=== PATIENT | female | born 1955 | race Hispanic/Latino ===

== ENCOUNTER → 2019-10-27 | Outpatient (CLI) | payer BC ==
[~2019-10-27] MED LIST: ASPI-1005 PO; ATOR20TA65 PO; CETI10TA86 PO; FISH1CAP20 PO; FLUT16H NASAL; HYDR-4457 PO; IBUP-2070 PO; LORA-997 PO; LOSA50TA64 PO; METF-444 PO; MVIT PO; NAPR500T6 PO; OXYB-66 PO; PRAV40TA3 PO; PREMC VG; SERT50TA12 PO; SOLI10TA7 PO; TRAM50TA2 PO; VIT1TABL95 PO; VITA1TAB39 PO; VITAD50000 PO
== END | disposition home or self-care (01) ==
LOC: SHCH 14:58
PROVIDERS: ATTEND Internal Medicine Cardiovascular Disease
DX: R94.31 Abnormal electrocardiogram [ECG] [EKG] (principal)
CPT/HCPCS: 93306

== ENCOUNTER → 2021-12-09 | Outpatient (CLI) | payer OTHER ==
[~2021-12-09] MED LIST changes: +BOTULINUM TOXIN TYPE A 100 UNITS/VIAL INJ PRN; +CEFTRIAXONE 1G VIAL IVP ONE; -CETI10TA86 PO; -METF-444 PO; -NAPR500T6 PO; -OXYB-66 PO; -PRAV40TA3 PO; +SERT-439 PO; -SERT50TA12 PO; -TRAM50TA2 PO; -VIT1TABL95 PO
[2021-12-09 12:53] LABS: APPEARANCE,URINE CLEAR (CLEAR); BILIRUBIN,URINE NEGATIVE (NEGATIVE); COLOR,URINE YELLOW (YELLOW); GLUCOSE, URINE (UA) NEGATIVE (NEGATIVE); KETONES,URINE NEGATIVE (NEGATIVE); LEUKOCYTE ESTERASE ,URINE NEGATIVE (NEGATIVE); NITRATE,URINE NEGATIVE (NEGATIVE); OCCULT BLOOD,URINE TRACE-INTACT (NEGATIVE); PROTEIN,URINE NEGATIVE (NEGATIVE); UROBILINOGEN,URINE 0.2 mg/dL (0.2-1.0)
[2021-12-09 13:04] LABS: BACTERIA,URINE Few /HPF (None Seen); MUCUS,URINE Moderate LPF (None Seen); RBC,URINE 0-1 /HPF (0-1); WBC,URINE 0-1 /HPF (0-1)
[2021-12-09 13:06] LABS: BASOPHILS % (AUTO) 0.5 % (0.0-5.0); HEMATOCRIT 40.9 % (36-48); MEAN CORPUSCULAR HEMOGLOBIN 29.2 pg (27.0-33.0); MEAN CORPUSCULAR HGB CONC 32.5 g/dL (32.0-36.0); MEAN CORPUSCULAR VOLUME 89.9 fL (79-99); MONOCYTES % (AUTO) 8.1 % (3.0-13.0); NEUTROPHILS % (AUTO) 83.6 % (40.0-77.0); PLATELET COUNT (AUTO) 212 K/uL (130-400); RED BLOOD CELL COUNT(AUTO) 4.55 MIL/uL (4.00-5.50); RED CELL DISTRIBUTION WIDTH 13.4 % (11.0-15.5); WHITE BLOOD COUNT (AUTO) 9.3 K/uL (4.8-10.8)
[2021-12-09 13:28] LABS: INR 0.96 (0.85-1.15); PROTHROMBIN TIME 10.5 SEC (9.6-11.6)
[2021-12-09 13:29] LABS: PARTIAL THROMBOPLASTIN TIME 29.2 SEC (26.3-35.5)
[2021-12-09 13:39] LABS: CREATININE 0.6 mg/dL (0.5-1.5); POTASSIUM 3.6 mmol/L (3.5-5.1)
== END | disposition home or self-care (01) ==
LOC: DAH 10:00 → EDSTATUS 11:00
PROVIDERS: ATTEND Urology
DX: Z01.818 Encounter for other preprocedural examination (principal); N39.46 Mixed incontinence; Z79.01 Long term (current) use of anticoagulants
CPT/HCPCS: 71045; 87426; 80048; 85025; 85610; 85730; 87088; 81001; 36415; 93005; A6260

== ENCOUNTER 2022-01-12 06:34 | Day surgery (SDC) | payer OTHER ==
[2022-01-09 16:35] VITALS: BP 162/61
[2022-01-09 16:58] LABS: BASOPHILS % (AUTO) 0.6 % (0.0-5.0); HEMATOCRIT 39.5 % (36-48); LYMPHOCYTES % (AUTO) 13.1 % (21.0-51.0); MEAN CORPUSCULAR HEMOGLOBIN 29.2 pg (27.0-33.0); MEAN CORPUSCULAR HGB CONC 31.6 g/dL (32.0-36.0); MEAN CORPUSCULAR VOLUME 92.3 fL (79-99); MONOCYTES % (AUTO) 7.4 % (3.0-13.0); NEUTROPHILS % (AUTO) 76.5 % (40.0-77.0); PLATELET COUNT (AUTO) 218 K/uL (130-400); RED BLOOD CELL COUNT(AUTO) 4.28 MIL/uL (4.00-5.50); WHITE BLOOD COUNT (AUTO) 9.6 K/uL (4.8-10.8)
[2022-01-09 17:00] LABS: APPEARANCE,URINE SL CLOUDY (CLEAR); BILIRUBIN,URINE NEGATIVE (NEGATIVE); COLOR,URINE YELLOW (YELLOW); GLUCOSE, URINE (UA) NEGATIVE (NEGATIVE); KETONES,URINE 5 mg/dL (NEGATIVE); LEUKOCYTE ESTERASE ,URINE NEGATIVE Leu/uL (NEGATIVE); NITRATE,URINE NEGATIVE (NEGATIVE); OCCULT BLOOD,URINE NEGATIVE (NEGATIVE); PROTEIN,URINE NEGATIVE (NEGATIVE); UROBILINOGEN,URINE 0.2 mg/dL (0.2-1.0)
[2022-01-09 17:06] LABS: BACTERIA,URINE Rare /HPF (None Seen); RBC,URINE 0-1 /HPF (0-1); SQUAMOUS EPITHELIAL CELL,UR Rare /HPF (0-2); WBC,URINE 0-1 /HPF (0-1)
[2022-01-09 17:07] LABS: CREATININE 0.8 mg/dL (0.5-1.5); POTASSIUM 3.9 mmol/L (3.5-5.1)
[2022-01-09 17:10] LABS: INR 0.93 (0.85-1.15); PROTHROMBIN TIME 10.1 SEC (9.6-11.6)
[2022-01-09 17:11] LABS: PARTIAL THROMBOPLASTIN TIME 28.3 SEC (26.3-35.5)
[2022-01-12] VITALS (16 sets, daily range): BP systolic 106–136; BP diastolic 51–72
[~2022-01-12] VITALS: Ht 144.8 cm; Wt 81.8 kg
[~2022-01-12 06:34] MED LIST changes: -ASPI-1005 PO; -BOTULINUM TOXIN TYPE A 100 UNITS/VIAL INJ PRN; -CEFTRIAXONE 1G VIAL IVP ONE; +CEFTRIAXONE 1G VIAL IVP SCH; -FISH1CAP20 PO; -FLUT16H NASAL; -HYDR-4457 PO; -IBUP-2070 PO; +NITR100C4 PO; -PREMC VG; -SOLI10TA7 PO
[2022-01-12] MEDS ORDERED: LACTATED RINGERS 1000ML 1,000 ML IV ONE (07:28)
[2022-01-12] MEDS ORDERED: OMEG-148 PO (07:53)
[2022-01-12] MEDS ORDERED: AEC81 PO (07:53)
[2022-01-12] MEDS ORDERED: BOTULINUM TOXIN TYPE A 100 UNITS/VIAL INJ SCH (08:00)
[2022-01-12] MEDS ORDERED: MIDAZOLAM HCL 1 MG/ML 2ML VIAL ONE (10:18)
[2022-01-12] MEDS ORDERED: PROPOFOL 10 MG/ML 20ML VIAL IV ONE (10:18)
[2022-01-12] MEDS ORDERED: FENTANYL CITRATE PF 50 MCG/1 ML 2ML VIAL ONE (10:18)
[2022-01-12] MEDS ORDERED: CEFTRIAXONE 1G VIAL IVP ONE (10:29)
[2022-01-12] MEDS ORDERED: LIDOCAINE HCL 2% PF 20 ML JEL DISP.SYRIN MM ONE (10:54)
== END 2022-01-12 13:35 | disposition home or self-care (01) ==
LOC: DAH 06:34
PROVIDERS: ATTEND Urology
DX: N39.46 Mixed incontinence (principal); N32.81 Overactive bladder; I10 Essential (primary) hypertension; E66.01 Morbid (severe) obesity due to excess calories; Z79.01 Long term (current) use of anticoagulants; Z79.899 Other long term (current) drug therapy; Z79.82 Long term (current) use of aspirin; Z98.890 Other specified postprocedural states
CPT/HCPCS: 80048; 85025; 85610; 85730; 87088; 87426; 81001; 36415; 71045; 93005; 52287; C1758; J7120; J3010; J0696 ×2; J2250; J2704; J0585; A4358; A4215 ×2; A4930; A4223; A4222; A4221; A4663; A4600

== ENCOUNTER 2022-08-03 06:51 | Day surgery (SDC) | payer OTHER ==
[2022-07-28 15:27] VITALS: BP 152/73
[2022-07-28 15:35] LABS: BASOPHILS % (AUTO) 0.7 % (0.0-5.0); EOSINOPHILS % (AUTO) 2.1 % (0.0-8.0); HEMATOCRIT 39.6 % (36-48); MEAN CORPUSCULAR HGB CONC 31.6 g/dL (32.0-36.0); MEAN CORPUSCULAR VOLUME 91.9 fL (79-99); MONOCYTES % (AUTO) 8.1 % (3.0-13.0); NEUTROPHILS % (AUTO) 76.6 % (40.0-77.0); PLATELET COUNT (AUTO) 237 K/uL (130-400); RED BLOOD CELL COUNT(AUTO) 4.31 MIL/uL (4.00-5.50); RED CELL DISTRIBUTION WIDTH 13.6 % (11.0-15.5); WHITE BLOOD COUNT (AUTO) 8.7 K/uL (4.8-10.8)
[2022-07-28 15:38] LABS: APPEARANCE,URINE CLEAR (CLEAR); BILIRUBIN,URINE NEGATIVE (NEGATIVE); COLOR,URINE YELLOW (YELLOW); GLUCOSE, URINE (UA) NEGATIVE (NEGATIVE); KETONES,URINE 5 mg/dL (NEGATIVE); LEUKOCYTE ESTERASE ,URINE NEGATIVE Leu/uL (NEGATIVE); NITRATE,URINE NEGATIVE (NEGATIVE); OCCULT BLOOD,URINE NEGATIVE (NEGATIVE); PROTEIN,URINE NEGATIVE (NEGATIVE); UROBILINOGEN,URINE 0.2 mg/dL (0.2-1.0)
[2022-07-28 15:42] LABS: BACTERIA,URINE RARE /HPF (None Seen); MUCUS,URINE RARE LPF (None Seen); SQUAMOUS EPITHELIAL CELL,UR MOD /HPF (0-2)
[2022-07-28 16:08] LABS: CREATININE 0.6 mg/dL (0.5-1.5); POTASSIUM 3.4 mmol/L (3.5-5.1)
[~2022-08-03] VITALS: Ht 144.8 cm; Wt 83.4 kg
[2022-08-03] VITALS (17 sets, daily range): BP systolic 95–129; BP diastolic 6–64
[2022-08-03] MEDS: CEFTRIAXONE 1G VIAL IVPB SCH ×2 (06:00→08:45)
[~2022-08-03 06:51] MED LIST changes: +ACET325T51 PO; +AEC81 PO; +ALEN70TA80 PO; +BOTULINUM TOXIN TYPE A 100 UNITS/VIAL INJ SCH; -CEFTRIAXONE 1G VIAL IVP SCH; -LORA-997 PO; -MVIT PO; -NITR100C4 PO; +OMEG-148 PO; -VITA1TAB39 PO; -VITAD50000 PO
[2022-08-03] MEDS ORDERED: LACTATED RINGERS 1000ML 1,000 ML IV ONE (06:55)
[2022-08-03] MEDS ORDERED: CEFTRIAXONE 1G VIAL ONE (06:55)
[2022-08-03] MEDS ORDERED: MACR100 PO (07:45)
[2022-08-03] MEDS ORDERED: DEXAMETHASONE SOD PHOSPHATE 10MG/ML 1ML VIAL ONE (08:37)
[2022-08-03] MEDS ORDERED: LIDOCAINE PF 100MG/5ML (2%) SYRINGE 5ML ONE (08:37)
[2022-08-03] MEDS ORDERED: MIDAZOLAM HCL 1 MG/ML 2ML VIAL ONE (08:38)
[2022-08-03] MEDS ORDERED: ONDANSETRON 4MG INJ ONE (08:38)
[2022-08-03] MEDS ORDERED: FENTANYL CITRATE PF 50 MCG/1 ML 2ML VIAL ONE (08:39)
[2022-08-03] MEDS ORDERED: PROPOFOL 10 MG/ML 20ML VIAL IV ONE (08:39)
[2022-08-03] MEDS ORDERED: KETOROLAC 30MG VIAL (30MG/ML) ONE (09:00)
[2022-08-03] MEDS ORDERED: PHENYLEPHRINE HCL 10 MG/ML 1ML VIAL IV ONE (09:00)
== END 2022-08-03 11:04 | disposition home or self-care (01) ==
LOC: DAH 06:51
PROVIDERS: ATTEND Urology
DX: N39.46 Mixed incontinence (principal); Z20.822 Contact with and (suspected) exposure to COVID-19; I10 Essential (primary) hypertension; Z90.710 Acquired absence of both cervix and uterus; Z98.890 Other specified postprocedural states
CPT/HCPCS: 80048; 85025; 87077; 87088; 87186; 87426; 81001; 36415; 71045; 93005; 52287; A4663; J7120 ×2; J3010; J1100; J2001; J0696; J2250; J2704; J2405; J1885; J2370; J0585; A4358; A4215 ×2; A4223; A4222; A4221; A4600

== ENCOUNTER 2023-02-22 08:36 | Day surgery (SDC) | payer BC, OTHER ==
[2023-02-16 14:17] VITALS: BP 137/64; PULSE 75; RESP 20
[2023-02-16 14:23] LABS: APPEARANCE,URINE CLEAR (CLEAR); BILIRUBIN,URINE NEGATIVE (NEGATIVE); COLOR,URINE YELLOW (YELLOW); GLUCOSE, URINE (UA) NEGATIVE (NEGATIVE); KETONES,URINE NEGATIVE (NEGATIVE); LEUKOCYTE ESTERASE ,URINE 75 Leu/uL (NEGATIVE); NITRATE,URINE NEGATIVE (NEGATIVE); OCCULT BLOOD,URINE SMALL (NEGATIVE); PH,URINE 5.5 (5.0-8.0); PROTEIN,URINE NEGATIVE (NEGATIVE); UROBILINOGEN,URINE 0.2 mg/dL (0.2-1.0)
[2023-02-16 14:31] LABS: ADD UA MICROSCOPIC YES
[2023-02-16 14:33] LABS: MUCUS,URINE RARE LPF (None Seen); SQUAMOUS EPITHELIAL CELL,UR RARE /HPF (0-2)
[~2023-02-22] VITALS: Ht 144.8 cm; Wt 81.3 kg
[2023-02-22] VITALS (14 sets, daily range): BP systolic 114–142; BP diastolic 51–73; PULSE 68–81; RESP 10–17
[~2023-02-22 08:36] MED LIST changes: -ACET325T51 PO; -ALEN70TA80 PO; +BOTULINUM TOXIN TYPE A 100 UNITS/VIAL INJ ONE; -BOTULINUM TOXIN TYPE A 100 UNITS/VIAL INJ SCH; +CEFAZOLIN SODIUM 1 GM VIAL IVPB ONE; +ONDA4TAB10 PO
[2023-02-22] MEDS ORDERED: SUCCINYLCHOLINE 200MG/10ML SYR ONE (08:57)
[2023-02-22] MEDS ORDERED: DEXAMETHASONE SOD PHOSPHATE 10MG/ML 1ML VIAL ONE (08:57)
[2023-02-22] MEDS ORDERED: MIDAZOLAM HCL 1 MG/ML 2ML VIAL ONE (08:57)
[2023-02-22] MEDS ORDERED: LIDOCAINE PF 100MG/5ML (2%) SYRINGE 5ML ONE (08:57)
[2023-02-22] MEDS ORDERED: ONDANSETRON 4MG INJ ONE (08:58)
[2023-02-22] MEDS ORDERED: ROCURONIUM 10MG/1ML SYR 10 MG/ML ML ONE (08:58)
[2023-02-22] MEDS ORDERED: NEOSTIGMINE 5MG/5ML SYR IV ONE (08:58)
[2023-02-22] MEDS ORDERED: PROPOFOL 10 MG/ML 20ML VIAL IV ONE (08:58)
[2023-02-22] MEDS ORDERED: FENTANYL CITRATE PF 50 MCG/1 ML 2ML VIAL ONE (08:58)
[2023-02-22] MEDS ORDERED: GLYCOPYRROLATE 1 MG/5 ML SYRINGE ONE (08:58)
[2023-02-22] MEDS ORDERED: BOTULINUM TOXIN TYPE A 100 UNITS/VIAL INJ SCH (09:00)
[2023-02-22] MEDS ORDERED: LACTATED RINGERS 1000ML 1,000 ML IV ONE (09:05)
[2023-02-22] MEDS ORDERED: CEFTRIAXONE 1G VIAL ONE (09:06)
[2023-02-22 09:28] LABS: CREATININE 0.5 mg/dL (0.5-1.5); POTASSIUM 4.1 mmol/L (3.5-5.1)
[2023-02-22] MEDS ORDERED: CEFAZOLIN SODIUM 1 GM VIAL IVPB ONE (10:15)
[2023-02-22] MEDS ORDERED: BOTULINUM TOXIN TYPE A 100 UNITS/VIAL INJ ONE (10:32)
== END 2023-02-22 12:25 | disposition home or self-care (01) ==
LOC: DAH 08:36
PROVIDERS: ATTEND Urology
DX: N39.46 Mixed incontinence (principal); N32.89 Other specified disorders of bladder; I10 Essential (primary) hypertension; E66.9 Obesity, unspecified; Z79.01 Long term (current) use of anticoagulants; Z79.899 Other long term (current) drug therapy; Z79.82 Long term (current) use of aspirin
CPT/HCPCS: 87088; 81001; 93005; 52287; 80048; 36415; A6260; A4663; J7120 ×2; J3010; J0690; J0330; J3490; J1100; J2710; J2001; J0696; J2250; J2704; J2405; J0585; A4358; A4215 ×2; A4223; A4222; A4221; A4600

== ENCOUNTER 2023-08-30 06:57 | Day surgery (SDC) | payer BC, OTHER ==
[2023-08-24 13:16] LABS: BASOPHILS # (AUTO) 0.06 K/uL (0.00-0.20); BASOPHILS % (AUTO) 0.7 % (0.0-5.0); EOSINOPHILS # (AUTO) 0.19 K/uL (0.00-0.70); EOSINOPHILS % (AUTO) 2.2 % (0.0-8.0); HEMATOCRIT 40.5 % (36-48); IMMATURE GRANULOCYTE ABSOLUTE 0.07 K/uL (0-1); LYMPHOCYTES # (AUTO) 1.2 K/uL (1.0-4.8); LYMPHOCYTES % (AUTO) 13.6 % (21.0-51.0); MEAN CORPUSCULAR HEMOGLOBIN 29.1 pg (27.0-33.0); MEAN CORPUSCULAR HGB CONC 31.9 g/dL (32.0-36.0); MEAN CORPUSCULAR VOLUME 91.4 fL (79-99); MONOCYTES # (AUTO) 0.9 K/uL (0.1-1.0); NEUTROPHILS # (AUTO) 6.3 K/uL (1.8-7.7); NEUTROPHILS % (AUTO) 72.7 % (40.0-77.0); PLATELET COUNT (AUTO) 244 K/uL (130-400); RED BLOOD CELL COUNT(AUTO) 4.43 MIL/uL (4.00-5.50); RED CELL DISTRIBUTION WIDTH 13.9 % (11.0-15.5); WHITE BLOOD COUNT (AUTO) 8.6 K/uL (4.8-10.8)
[2023-08-24 13:18] VITALS: BP 168/74; PULSE 81; RESP 18
[2023-08-24 13:27] LABS: CREATININE 0.6 mg/dL (0.5-1.0); POTASSIUM 4.4 mmol/L (3.5-5.1)
[2023-08-24 14:02] LABS: APPEARANCE,URINE CLOUDY (CLEAR); BILIRUBIN,URINE NEGATIVE (NEGATIVE); COLOR,URINE YELLOW (YELLOW); GLUCOSE, URINE (UA) NEGATIVE (NEGATIVE); KETONES,URINE NEGATIVE (NEGATIVE); LEUKOCYTE ESTERASE ,URINE 25 Leu/uL (NEGATIVE); NITRATE,URINE NEGATIVE (NEGATIVE); OCCULT BLOOD,URINE NEGATIVE (NEGATIVE); PH,URINE 6.5 (5.0-8.0); PROTEIN,URINE NEGATIVE (NEGATIVE); UROBILINOGEN,URINE 0.2 mg/dL (0.2-1.0)
[2023-08-24 14:04] LABS: ADD UA MICROSCOPIC YES
[2023-08-24 14:09] LABS: BACTERIA,URINE RARE /HPF (None Seen); CALCIUM OXALATE CRYSTALS,UR RARE /LPF (None Seen); MUCUS,URINE RARE LPF (None Seen); SQUAMOUS EPITHELIAL CELL,UR FEW /HPF (0-2)
[2023-08-30] VITALS (17 sets, daily range): BP systolic 114–151; BP diastolic 55–74; PULSE 61–72; RESP 12–19
[~2023-08-30] VITALS: Ht 146.1 cm; Wt 85.5 kg
[~2023-08-30 06:57] MED LIST changes: +ACET325T51 PO; -AEC81 PO; -BOTULINUM TOXIN TYPE A 100 UNITS/VIAL INJ ONE; -CEFAZOLIN SODIUM 1 GM VIAL IVPB ONE; +CETI10TA57 PO; +CHOL200074 PO; +IBUP-2784 PO; +NAPR-1141 PO; -OMEG-148 PO; -ONDA4TAB10 PO; -SERT-439 PO; +SERT-440 PO; +VITA0.4T20 PO; +[UNRECOGNIZED DRUG - CODE] PO
[2023-08-30] MEDS ORDERED: MIDAZOLAM HCL 1 MG/ML 2ML VIAL ONE (07:25)
[2023-08-30] MEDS ORDERED: PROPOFOL 10 MG/ML 20ML VIAL IV ONE (07:25)
[2023-08-30] MEDS ORDERED: LIDOCAINE PF 100MG/5ML (2%) SYRINGE 5ML ONE (07:25)
[2023-08-30] MEDS ORDERED: ONDANSETRON 4MG INJ ONE (07:26)
[2023-08-30] MEDS ORDERED: FENTANYL CITRATE PF 50 MCG/1 ML 2ML VIAL ONE (07:26)
[2023-08-30] MEDS: LACTATED RINGERS 1000ML 1,000 ML IV ONE (07:56)
[2023-08-30] MEDS ORDERED: MACR100 PO (08:23)
[2023-08-30] MEDS ORDERED: PHENYLEPHRINE HCL 10 MG/ML 1ML VIAL IV ONE (08:53)
[2023-08-30] MEDS: CEFTRIAXONE 1G VIAL ONE (08:55)
[2023-08-30] MEDS: BOTULINUM TOXIN TYPE A 100 UNITS/VIAL INJ SCH (09:00)
== END 2023-08-30 11:05 | disposition home or self-care (01) ==
LOC: DAH 06:57
PROVIDERS: ATTEND Urology
DX: N39.46 Mixed incontinence (principal); I10 Essential (primary) hypertension; Z79.899 Other long term (current) drug therapy; Z98.890 Other specified postprocedural states; Z90.710 Acquired absence of both cervix and uterus
CPT/HCPCS: 80048; 85025; 87088; 81001; 36415; 93005; 52287; A6260; A4663; J7120 ×2; C2617; J3010; J2001; J0696; J2250; J2704; J2405; J2371; J0585; A4358; A4215; A4223; A4222; A4221; A4600; J3490